=== PATIENT | female | born 1975 | race Hispanic/Latino ===

== ENCOUNTER 2016-08-31 23:42 | Emergency (ER) | payer SELFPAY ==
[2016-09-01 00:02] VITALS: BMI 22.8
[2016-09-01 00:04] VITALS: BP 119/66; PULSE 70; RESP 16; TEMP 97.6; O2SAT 100
--- NOTE | 2016-09-01 00:57 | ED PDOC ---
Arrival/HPI - General Chief Complaint: Lower Extremity Problem/Injury Time Seen by Provider: 09/01/16 00:48 Historian: Patient - History of Present Illness Narrative History of Present Illness (Text): 09/01/16 00:55 40 y/o female, no pmh, nkda, c/o rt. anterior knee injury and pain x 1 day. Pt. was at work, slipped and landed on the rt. anterior knee, no numbness or tingling, no head or neck injury, no other medical or psychological complaints. Past Medical History - Provider Review Nursing Documentation Reviewed: Yes - Infectious Disease Hx of Infectious Diseases: None - Psychiatric Hx Substance Use: No - Surgical History Hx Section: Yes - Anesthesia Hx Anesthesia: No Hx Anesthesia Reactions: No Hx Malignant Hyperthermia: No Family/Social History - Physician Review Nursing Documentation Reviewed: Yes Family/Social History: Unknown Family HX Smoking Status: Never Smoked Hx Alcohol Use: No Hx Substance Use: No Allergies/Home Meds Allergies/Adverse Reactions: Allergies No Known Allergies Allergy (Verified 09/01/16 00:02) Review of Systems - Review of Systems Constitutional: absent: Fatigue, Fevers Eyes: absent: Vision Changes ENT: absent: Hearing Changes Respiratory: absent: Cough Cardiovascular: absent: Chest Pain Gastrointestinal: absent: Abdominal Pain, Nausea, Vomiting Musculoskeletal: Arthralgias. absent: Back Pain, Neck Pain, Joint Swelling, Myalgias Neurological: absent: Headache, Dizziness, Focal Weakness, Gait Changes, Speech Changes, Facial Droop, Disequilibrium, Seizure, Other Physical Exam Vital Signs Reviewed: Yes Vital Signs Temp Pulse Resp BP Pulse Ox 09/01/16 00:02 97.6 F 70 16 119/66 100 Temperature: Afebrile Blood Pressure: Normal Pulse: Regular Respiratory Rate: Normal Appearance: Positive for: Well-Appearing, Non-Toxic, Comfortable Pain Distress: Moderate Mental Status: Positive for: Alert and Oriented X 3 - Systems Exam Head: Present: Atraumatic, Normocephalic Pupils: Present: PERRL Extroacular Muscles: Present: EOMI Conjunctiva: Present: Normal Mouth: Present: Moist Mucous Membranes Neck: Present: Normal Range of Motion Respiratory/Chest: Present: Clear to Auscultation, Good Air Exchange. No: Respiratory Distress, Accessory Muscle Use Cardiovascular: Present: Regular Rate and Rhythm, Normal S1, S2. No: Murmurs Abdomen: Present: Normal Bowel Sounds. No: Tenderness, Distention, Peritoneal Signs Back: Present: Normal Inspection Upper Extremity: Present: Normal Inspection. No: Cyanosis, Edema Lower Extremity: Present: Normal Inspection, Other (Rt. knee: mild +ttp on the rt. anterior knee, skin intact, no swelling, no deformity, negative john and lemus signs, FROM without limitation, sensation intact, motor 5/5. ). No: Edema Neurological: Present: GCS=15, CN II-XII Intact, Speech Normal Skin: Present: Warm, Dry, Normal Color. No: Rashes Psychiatric: Present: Alert, Oriented x 3, Normal Insight, Normal Concentration Medical Decision Making ED Course and Treatment: 09/01/16 00:57 -rt. knee xray -motrin -observe and reassess 09/01/16 01:40 -Rt. knee xray show no fracture or dislocation -Pain decreased, denise wrap applied with neurovascular intact. -Discharge home with ibuprofen, denise wrap, crutches, ice compression, follow up with your own pmd and orthopedic within 2 days, return to the ER for any new or worsening signs or symptoms. - RAD Interpretation Radiology Orders: 09/01/16 00:48 KNEE W PATELLA RIGHT 3 VIEW [RAD] Stat no acute findings. Planimeter Operator: Radiologist - Medication Orders Current Medication Orders: Discontinued Medications Ibuprofen (Motrin Tab) 800 mg PO STAT STA Stop: 09/01/16 00:49 Last Admin: 09/01/16 01:00 Dose: 800 MG MAR Pain/Vitals Document 09/01/16 01:00 [facility] (Rec: 09/01/16 01:01 [id number]) Pain Reassessment Is This A Pain ReAssessment? Yes Presence of Pain Presence of Pain Yes - PA / SALVATIONIST / Resident Statement MD/DO has reviewed & agrees with the documentation as recorded. Disposition/Present on Arrival - Present on Arrival Any Indicators Present on Arrival: No History of DVT/PE: No History of Uncontrolled Diabetes: No Urinary Catheter: No History of Decub. Ulcer: No History Surgical Site Infection Following: None - Disposition Have Diagnosis and Disposition been Completed?: Yes Diagnosis: Knee injury, Knee pain, acute Disposition: HOME/ ROUTINE Disposition Time: 01:41 Patient Plan: Discharge Condition: GOOD Additional Instructions: Discharge home with ibuprofen, denise wrap, crutches, ice compression, follow up with your own pmd and orthopedic within 2 days, return to the ER for any new or worsening signs or symptoms. Prescriptions: Ibuprofen [Motrin Tab] 800 mg PO TID PRN #[id number] tab PRN Reason: Other Referrals: Devang Maurer III, MD [Medical Doctor] - Follow up with primary [facility] [place] - Follow up with primary Forms: WORK NOTE
--- NOTE | 2016-09-01 11:06 | RAD ---
PROCEDURE: Right Knee Radiographs. HISTORY: rt. knee injury from fall COMPARISON: None. FINDINGS: BONES: Normal. No fracture. JOINTS: Normal. No osteoarthritis. JOINT EFFUSION: None. OTHER FINDINGS: None. IMPRESSION: No acute findings related to/accounting for the clinical presentation. Concordant results with the preliminary interpretation rendered by the emergency department physician procedure.
== END 2016-09-01 01:55 | disposition home or self-care (01) ==
LOC: ED 23:42
DX: S89.91XA Unspecified injury of right lower leg, initial encounter (principal); W01.0XXA Fall on same level from slipping, tripping and stumbling without subsequent striking against object, initial encounter; Y93.89 Activity, other specified; Y92.89 Other specified places as the place of occurrence of the external cause; Y99.8 Other external cause status